=== PATIENT | male | born 1960 | race Caucasian/White ===

== ENCOUNTER 2018-05-30 00:20 | Outpatient (CLI) | payer OTHER, SELFPAY ==
--- NOTE | 2018-05-30 09:24 | DI.RAD_ITS ---
SYMPTOM/DIAGNOSIS: RT KNEE PAIN, BACK PAIN,DISABILITY DETERMINATION LUMBOSACRAL SPINE: Three views were obtained. There appears to be mild degenerative change of both SI joints. There is disc space loss of height at L 5-S 1 and minimally at L 4- 5. There are hypertrophic changes of vertebral endplates at multiple levels, most prominent at T 12-L 1. Mild facet hypertrophic degenerative changes noted as well. CONCLUSION: DJD with evidence of disc degeneration at L 5-S 1. RIGHT KNEE: AP view includes both knees. Lateral view of the right knee obtained as well. No bony or soft tissue abnormality is seen.
== END 2018-05-30 00:40 ==
PROVIDERS: Visit Provider Pediatrics Pediatric Rheumatology
DX: M25.561 Pain in right knee (principal); M54.5 Low back pain; M51.37 Other intervertebral disc degeneration, lumbosacral region; M53.3 Sacrococcygeal disorders, not elsewhere classified; Z02.71 Encounter for disability determination
CPT/HCPCS: 72100; 73560

== ENCOUNTER 2020-12-20 08:25 | Outpatient (CLI) | payer MEDICARE, BC, SELFPAY ==
--- NOTE | 2020-12-20 08:15 | DI.RAD_ITS ---
Exam(s) XR SHOULDER LT COMPLETE 2+V EXAM: XR SHOULDER LT COMPLETE 2+V CLINICAL HISTORY: left shoulder pain. TECHNIQUE: 2D digital imaging was performed. COMPARISON: No exams were available for comparison FINDINGS: BONES: No acute fracture is present. No bony destructive lesion is seen. A few tiny subchondral cyst s are seen in the humeral head. JOINTS: No dislocation present. There is mild spurring at the AC joint and glenoid as well as unders urface of the acromion. SOFT TISSUE: Normal. IMPRESSION: Mild degenerative changes. DATA REPOSITORY: RADIATION DOSE DELIVERED:
== END 2020-12-20 08:26 | disposition home or self-care (01) ==
LOC: DIORS 08:25
PROVIDERS: PCP Family Medicine; Referring Provider Family Medicine; Visit Provider Student in an Organized Health Care Education/Training Program
DX: M25.512 Pain in left shoulder (principal); M75.22 Bicipital tendinitis, left shoulder; M75.52 Bursitis of left shoulder; M75.42 Impingement syndrome of left shoulder
CPT/HCPCS: 99203; 73030

== ENCOUNTER 2021-01-13 03:43 | Outpatient (CLI) | payer MEDICARE, BC, SELFPAY ==
--- NOTE | 2021-01-13 14:35 | DI.MRI_ITS ---
Exam(s) MR UPPER JOINT LT WO CLINICAL HISTORY: Persistent pain, weakness,lt rotator cuff titus,tendinitis,bursitis,impinge. TECHNIQUE: Multiplanar multisequence MRI was performed. COMPARISON: None FINDINGS: MR examination of the shoulder was performed according to the usual protocol. There is trace joint effusion and trace fluid in the subacromial subdeltoid bursa. Bones and labrum: Glenoid labrum is not ideally visualized but there appear to be some areas of abnor mal signal in the superior labrum suggesting a nondisplaced SL AP tear. There is mild hypertrophic c hange at AC joint with narrowing of acromial. There are few small subchondral cysts of the humeral h ead. Rotator cuff: There is thinning of the supraspinatus and infraspinatus tendons from the myotendinous junction region distally with narrowing of the acromial outlet. There is abnormal signal in suprasp inatus and infraspinatus tendons consistent with tendinosis without evidence of a discrete tear. Sub scapularis tendon shows mildly abnormal signal also consistent with tendinosis. Teres minor muscle a nd tendon unremarkable. No significant fatty atrophy of the rotator cuff musculature. There is abnormal signal in the rotator interval region suggesting inflammation or tear. Biceps tendon and anchor: Biceps tendon and anchor show normal signal and no evidence of a tear. Rika ps tendon is normally positioned in the bicipital groove. IMPRESSION: Supraspinatus and infraspinatus tendinosis with marked tendon thinning, no focal tear seen. Addition al findings as described above may include a nondisplaced SL AP tear and tear in the rotator interval region. DATA REPOSITORY:
== END 2021-01-13 04:03 ==
PROVIDERS: PCP Family Medicine; Visit Provider Student in an Organized Health Care Education/Training Program
DX: M75.102 Unspecified rotator cuff tear or rupture of left shoulder, not specified as traumatic (principal); M77.8 Other enthesopathies, not elsewhere classified
CPT/HCPCS: 73221

== ENCOUNTER → 2021-01-18 13:13 | Outpatient (BNVA) | payer MEDICARE, BC, SELFPAY | PROVIDERS: PCP Family Medicine; Referring Provider Family Medicine; Visit Provider Student in an Organized Health Care Education/Training Program | DX: M75.22 Bicipital tendinitis, left shoulder (principal); M75.52 Bursitis of left shoulder; M75.42 Impingement syndrome of left shoulder | CPT/HCPCS: 20610; 99213; J1030 ==

== ENCOUNTER 2021-03-17 15:04 | Outpatient (REF) | payer MEDICARE, BC, SELFPAY ==
[2021-03-17 14:13] LABS: ALT 35 U/L (16-63); AST 19 U/L (15-37); Anion Gap 7.5 mmol/L (3-11); BUN 15 mg/dL (7-18); CO2 29.5 mmol/L (21.0-32.0); Calcium 9.2 mg/dL (8.5-10.1); Calculated LDL 237 mg/dL (<100); Chloride 104 mmol/L (98-107); Cholesterol 306 mg/dL (<200); Glucose 105 mg/dL (74-106); HDL Cholesterol 43 mg/dL (40-60); Potassium 4.5 mmol/L (3.5-5.1); Sodium 141 mmol/L (136-145); Triglyceride 132 mg/dL (<150)
== END 2021-03-17 15:05 | disposition home or self-care (01) ==
LOC: NCHCN 15:04
PROVIDERS: PCP Family Medicine; Visit Provider Nurse Practitioner Family
DX: E78.5 Hyperlipidemia, unspecified (principal); Z51.81 Encounter for therapeutic drug level monitoring
CPT/HCPCS: 80048; 80061; 84450; 84460

== ENCOUNTER 2021-03-30 13:15 | Outpatient (REF) | payer MEDICARE, BC, SELFPAY ==
[2021-03-31 16:52] LABS: COVID-19 RT-PCR UVMMC Result Negative (Negative)
== END 2021-03-30 13:16 | disposition home or self-care (01) ==
LOC: NCHCN 13:15
PROVIDERS: PCP Family Medicine; Visit Provider Internal Medicine
DX: Z20.822 Contact with and (suspected) exposure to COVID-19 (principal); R09.89 Other specified symptoms and signs involving the circulatory and respiratory systems
CPT/HCPCS: U0003; U0005

== ENCOUNTER 2021-08-16 14:39 | Outpatient (REF) | payer MEDICARE, BC, SELFPAY ==
[2021-08-16 22:40] LABS: PSA, Screening 0.4 ng/mL (<=3.5)
[2021-08-20 16:48] LABS: Testosterone, Free 5.18 ng/dL (3.87-14.7); Testosterone, Total 324 ng/dL (240-950)
== END 2021-08-16 14:40 | disposition home or self-care (01) ==
LOC: NCHCN 14:39
PROVIDERS: PCP Family Medicine; Visit Provider Family Medicine
DX: F52.21 Male erectile disorder (principal)
CPT/HCPCS: 84153; 84402; 84403

== ENCOUNTER 2025-01-04 02:46 | Outpatient (CLI) | payer MEDICARE, BC, SELFPAY ==
--- NOTE | 2025-01-04 07:00 | DI.RAD_ITS ---
Exam(s) XR FOOT RT COMPLETE EXAM: XR FOOT RT COMPLETE CLINICAL HISTORY: Right foot pain,m79.671. TECHNIQUE: 2D digital imaging was performed. Three views. COMPARISON: CR XR FOOT LT COMPLETE from 01/04/2025 FINDINGS: BONES: No acute fracture is present. No bony destructive lesion is seen. JOINTS: No dislocation present. There are are hammertoe deformities. The joint spaces are maintained. The plantar arch is maintained. There are minimal degenerative changes of the 1st MTP joint. SOFT TISSUE: Normal. IMPRESSION: Hammertoe deformities. DATA REPOSITORY: RADIATION DOSE DELIVERED:
--- NOTE | 2025-01-04 07:00 | DI.RAD_ITS ---
Exam(s) XR FOOT LT COMPLETE EXAM: XR FOOT LT COMPLETE CLINICAL HISTORY: Left foot pain,[id number]. TECHNIQUE: 2D digital imaging was performed. Three views. COMPARISON: CR RIGHT FOOT COMPLETE from 02/08/2014 FINDINGS: BONES: No acute fracture is present. No bony destructive lesion is seen. JOINTS: No dislocation present. Plantar arch is maintained. There are minimal degenerative changes of the 1st MTP joint. There are mild hammertoe deformities. SOFT TISSUE: Normal. IMPRESSION: Mild hammertoe deformities. DATA REPOSITORY: RADIATION DOSE DELIVERED:
== END 2025-01-04 03:06 ==
PROVIDERS: PCP Family Medicine; Visit Provider Podiatrist
DX: M79.671 Pain in right foot (principal); M79.672 Pain in left foot; M20.42 Other hammer toe(s) (acquired), left foot; M20.41 Other hammer toe(s) (acquired), right foot; M72.2 Plantar fascial fibromatosis; M67.02 Short Achilles tendon (acquired), left ankle; L84 Corns and callosities; Q82.8 Other specified congenital malformations of skin
CPT/HCPCS: 17110; 20550; J0702; J1100; 73630

== ENCOUNTER → 2025-02-24 15:08 | Outpatient (BNVA) | payer MEDICARE, BC, SELFPAY | PROVIDERS: PCP Family Medicine; Referring Provider Family Medicine; Visit Provider Podiatrist | DX: M72.2 Plantar fascial fibromatosis (principal); M67.02 Short Achilles tendon (acquired), left ankle; L84 Corns and callosities; B07.0 Plantar wart | CPT/HCPCS: 17110 ==

== ENCOUNTER 2025-03-08 11:37 | Outpatient (REF) | payer MEDICARE, BC, SELFPAY ==
[2025-03-08 16:14] LABS: ALT 21 U/L (10-49); AST 20 U/L (<34); Albumin 4.2 g/dL (3.2-5.0); Alkaline Phosphatase 82 U/L (46-116); Anion Gap 4.9 mmol/L (3-11); BUN 19 mg/dL (9-23); Bilirubin, Total 0.30 mg/dL (0.2-1.2); CO2 28.1 mmol/L (20.0-31.0); Calcium 9.2 mg/dL (8.3-10.6); Chloride 111 mmol/L (98-107); Cholesterol 337 mg/dL (<200); Glucose 99 mg/dL (74-106); HDL Cholesterol 44 mg/dL (>40); Potassium 4.3 mmol/L (3.5-5.1); Sodium 144 mmol/L (136-145); Total Protein 6.3 g/dL (5.7-8.2)
== END 2025-03-08 11:38 | disposition home or self-care (01) ==
LOC: NCHCN 11:37
PROVIDERS: PCP Family Medicine; Visit Provider Family Medicine
DX: E78.5 Hyperlipidemia, unspecified (principal)
CPT/HCPCS: 80053; 80061